=== PATIENT | female | born 1955 | race Two or more races ===

== ENCOUNTER 2017-06-01 20:30 | Emergency (ER) | payer OTHER ==
[~2017-06-01] VITALS: Ht 157.5 cm; Wt 59.0 kg
[2017-06-01 21:00] VITALS: BP 138/83
[2017-06-01] MEDS ORDERED: IBUPROFEN600 MG ORAL (21:24)
--- NOTE | 2017-06-01 21:24 | Emergency Room Report ---
History of Present Illness General Chief Complaint: Pain Source: Patient Present Illness HPI This is a 62-year-old [id number] female presents with chief complaint of right elbow and right wrist pain. 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 Most her pain is on the right elbow. No other injury. Did not pass out. No loss of consciousness. Pain is 5 out of 10. Allergies: Coded Allergies: CIPROFLOXACIN (Verified Allergy, Unknown, 06/01/17) CODEINE (Verified Allergy, Unknown, 06/01/17) Patient History Past Medical History: none, see triage record, old chart reviewed Past Surgical History: other Pertinent Family History: none Social History: Denies: smoking Last Menstrual Period: Na Now: No Immunizations: other Reviewed Nursing Documentation: PMH: Agreed, PSxH: Agreed Nursing Documentation-PMH Past Medical History: No Stated History Review of Systems Eye: Denies: eye pain, blurred vision ENT: Denies: ear pain, nose congestion, throat swelling Respiratory: Denies: cough, shortness of breath Cardiovascular: Denies: chest pain, palpitations Gastrointestinal: Denies: abdominal pain, diarrhea, nausea, vomiting Musculoskeletal: Reports: muscle pain, Denies: back pain, joint pain Skin: Denies: rash Neurological: Denies: headache, numbness Endocrine: Denies: increased thirst, increased urine Hematologic/Lymphatic: Denies: easy bruising All Other Systems: negative except mentioned in HPI Physical Exam Vital Signs Date Time Temp Pulse Resp B/P (MAP) Pulse Ox O2 Delivery O2 Flow Rate FiO2 06/01/17 20:46 98.3 75 18 148/83 99 Room Air 98.2 vitals unremarkable Sp02 EP Interpretation: reviewed, normal General Appearance: well appearing, no apparent distress, alert Head: normocephalic, atraumatic Eyes: bilateral eye PERRL, bilateral eye EOMI ENT: hearing grossly normal, normal pharynx Neck: full range of motion, supple, no meningismus Respiratory: chest non-tender, lungs clear, normal breath sounds Cardiovascular #1: regular rate, rhythm, no murmur Gastrointestinal: normal bowel sounds, non tender, no mass, no organomegaly, no bruit, non-distended Musculoskeletal: back normal, gait/station normal, normal range of motion, other - Right arm: Tenderness to the lateral aspect of the right elbow. Full range of motion. No deformity. No ecchymosis. Mild tenderness over the wrist. Full range of motion. No swelling. Sensation normal. Pulses normal. Neurologic: alert, oriented x3 Psychiatric: mood/affect normal Skin: warm/dry Procedures Splinting Splinting : Consent: Verbal Location: right elbow Pre-Made Type: MANDIE wrap Pre-Proc Neuro Vasc Exam: normal Post-Proc Neuro Vasc Exam: normal Patient Tolerated: Well Complications: None Medical Decision Making Diagnostic Impression: Primary Impression: Contusion of right upper extremity Qualified Codes: S40.021A - Contusion of right upper arm, initial encounter ER Course Patient with soft tissue injury to her right arm. No fracture or dislocation. No nerve or tendon involvement. We'll discharge home. Other X-Ray Diagnostic Results Other X-Ray Diagnostic Results : X-Ray ordered: Right elbow x-rays # of Views/Limited Vs Complete: 3 View Indication: Pain EP Interpretation: Yes Interpretation: no dislocation, no soft tissue swelling, no fractures Impression: No acute disease Electronically Signed by: Erwin Dalal MD Last Vital Signs Date Time Temp Pulse Resp B/P (MAP) Pulse Ox O2 Delivery O2 Flow Rate FiO2 06/01/17 20:46 98.3 75 18 148/83 99 Room Air 98.2 Status: improved Disposition: HOME, SELF-CARE Condition: Stable Scripts Ibuprofen* (MOTRIN*) 600 Mg Tablet 600 MG ORAL Q8H Y for For Pain, #30 TAB 0 Refills Prov: ERWIN DALAL M.D. 06/01/17 Additional Instructions: Follow-up with Work[employer] Compensation in 3-5 days if not better. Return if worse. ERWIN DALAL M.D. Jun 01, 2017 21:24
[2017-06-01 21:40] VITALS: BP 148/83
--- NOTE | 2017-06-02 10:57 | Diagnostic Imaging Report ---
Indication: Trauma Technique: 3 views of the left elbow Comparison: Findings: No acute fractures. No dislocations. No joint effusion. Joint spaces are preserved. Normal mineralization. No radiopaque foreign body. Impression: Negative
== END 2017-06-01 21:40 | disposition home or self-care (01) ==
LOC: EMR 21:18
DX: S40.021A Contusion of right upper arm, initial encounter (principal); W22.8XXA Striking against or struck by other objects, initial encounter; Y92.59 Other trade areas as the place of occurrence of the external cause; Y99.0 Civilian activity done for income or pay
CPT/HCPCS: 99283